=== PATIENT | male | born 1935 | race Caucasian/White ===

== ENCOUNTER 2018-08-26 16:31 | Emergency (ER) | payer MEDICARE ==
[2018-08-26] MEDS ORDERED: TETANUS/DIPHTHERIA TOXOID [ADULT] 0.5 ML VIAL IM ONE (16:59)
== END 2018-08-26 17:49 | disposition home or self-care (01) ==
LOC: EDH 16:31
DX: S01.01XA Laceration without foreign body of scalp, initial encounter (principal); I48.91 Unspecified atrial fibrillation; E07.9 Disorder of thyroid, unspecified; W18.39XA Other fall on same level, initial encounter; Y93.89 Activity, other specified; Y92.830 Public park as the place of occurrence of the external cause; Y99.8 Other external cause status
CPT/HCPCS: 12001; 70450; 90471; 90714

== ENCOUNTER 2018-09-03 13:52 | Emergency (ER) | payer MEDICARE | END 2018-09-03 14:26 | disposition home or self-care (01) | LOC: EDH 13:52 | DX: S01.01XD Laceration without foreign body of scalp, subsequent encounter (principal); I48.91 Unspecified atrial fibrillation; E07.9 Disorder of thyroid, unspecified; Z98.890 Other specified postprocedural states; X58.XXXD Exposure to other specified factors, subsequent encounter | CPT/HCPCS: 99281 ==